=== PATIENT | female | born 1995 | race Caucasian/White ===

== ENCOUNTER 2018-05-03 10:16 | Observation (INO) | payer BC ==
[2018-05-03 11:01] LABS: #Basophils 0.1 thou/uL (0.0-0.2); #Eosinphils 0.1 thou/uL (0.0-0.7); #Lymphocytes 1.6 thou/uL (1.20-3.40); #Monocytes 0.3 thou/uL (0.11-0.59); #Neutrophils 5.6 thou/uL (1.40-6.50); %Basophils 0.7 % (0.0-1.0); %Eosinophils 0.8 % (0.0-10.0); %Lymphocytes 20.8 % (21.0-51.0); %Monocytes 4.2 % (0.0-10.0); %Neutrophils 73.4 % (42.0-75.0); Hemoglobin 12.9 g/dL (12.0-16.0); Mean Corpuscular HGB CONC 33.7 g/dL (32.0-36.0); Mean Corpuscular Hemoglobin 29.5 pg (27.0-31.0); Mean Corpuscular Volume 87.6 fL (78.0-98.0); Mean Platelet Volume 7.8 fL (7.4-10.4); Platelet Count 238 thou/uL (130-400); Red Blood Cell (RBC) Count 4.39 mill/uL (4.20-5.40); White Blood Cell (WBC) Count 7.7 thou/uL (4.8-10.8)
[2018-05-03] MEDS ORDERED: Morphine 2 MG/ML SYRINGE ONE (11:06)
[2018-05-03] MEDS ORDERED: Ketorolac Tromethamine 30 MG/ML VIAL ONE (11:06)
[2018-05-03] MEDS ORDERED: Ondansetron PF 4 MG/2 ML Vial ONE ×2 (11:13→11:14)
[2018-05-03 14:20] VITALS: BMI 18.0
--- NOTE | 2018-05-03 14:57 | ULT ---
ULTRASOUND PELVIS TRANSVAGINAL: History: Pelvic pain. Recently diagnosed with a left tubal ectopic. Comparison: None. FINDINGS: Real-time grayscale, color doppler, and spectral analysis of the pelvis performed with transabdominal and transvaginal approach. The uterus measures 7.2 x 3 x 4 cm. Endometrium is 3 mm. Right ovary is 5.7 x 4.7 x 4.2 cm with two s eptated cystic structures, one measuring 4 cm and the other 2.6 cm which have the appearance of hemor rhagic cysts. Adjacent to the left ovary is a complex hyperechoic 1 cm structure with a central sub 5 mm hypoechoic round focus. This may be the patient's known ectopic . IMPRESSION: 1. 1 cm hypoechoic structure adjacent to the left ovary with an indwelling very small 5 mm hypoechoic indwelling focus may be the patient's known ectopic . No evidence for ectopic rupture. 2. Likely large hemorrhage cyst in the right ovary. 3. Trace free fluid. 4. Dilated gonadal veins can be seen with pelvic congestion syndrome. 5. Follow up ultrasound and HCG levels are recommended. POS: OFF
[2018-05-03] MEDS ORDERED: Ibuprofen 600 MG TAB PO PRN (16:18)
[2018-05-03] MEDS ORDERED: Acetaminophen 325 MG TAB PO PRN (16:19)
[2018-05-03] MEDS ORDERED: Sodium Chloride 0.9% 10 ML ONE (19:02)
[2018-05-03] MEDS: Ondansetron PF 4 MG/2 ML Vial IVP PRN (19:09)
[2018-05-04] MEDS ORDERED: HYDROcodone/Acetaminophen 7.5/325 mg Tablet ONE (00:59)
[2018-05-04] MEDS ORDERED: Sodium Chloride 0.9% 10 ML ONE (01:00)
[2018-05-04] MEDS: Ondansetron PF 4 MG/2 ML Vial IVP PRN (01:03)
[2018-05-04 07:55] VITALS: BP 89/52; TEMP 98.2
--- NOTE | 2018-05-04 08:18 | SS ---
DATE OF ADMISSION: 05/03/2018 DATE OF DISCHARGE: 05/04/2018 ADMITTING DIAGNOSES: Known ectopic , status post methotrexate with abdominal pain. PRIMARY OB: Dr. Mason Rios HISTORY OF PRESENT ILLNESS: The patient is a 22-year-old female G1, P0 with a known ectopic pregnanc y diagnosed several days ago at which time the patient was diagnosed 2 days prior to presentation, me dicated with methotrexate. The patient presented to the ER on day of admission with a 1-day onset of abdominal pain. The patient required IV pain medication in the emergency room. Evaluation there de monstrated a stable situation. No free fluid in the pelvis or significantly changed ultrasound findi ngs. The patient was admitted to the hospital for pain control and a repeat ultrasound was performed later that evening. The patient reports that her pain was uncontrolled by over the counter medicati ons. Here in the hospital it was controlled with scheduled add ibuprofen, Tylenol and a couple doses of IV morphine. At time of admission, the patient reported some spotting, reported nausea with the pain medication. Denied fever, headache, chest pain, shortness of breath, diarrhea, constipation, ne w rash, hip problems, knee problems, muscle weakness, urinary urgency or frequency. PAST MEDICAL HISTORY: Ectopic . PAST SURGICAL HISTORY: Surgery of her right arm. SOCIAL HISTORY: Reports social drinking of 3 beers a week. Denies drug use or tobacco use. ALLERGIES: No known drug allergies. MEDICATIONS: The patient had received 1 dose of Toradol and morphine in the emergency room at the ti me of my initial evaluation. VITAL SIGNS: On initial presentation blood pressure 126/84, pulse of 88, respiratory rate 16, temper ature 98.1, satting 98% on room air. GENERAL: She appeared to be fairly comfortable at the time of my initial evaluation, however, was ly ing in a position as this gave her the most comfort. She is alert and was reviewing her phone for entertainment. LUNGS: Clear to auscultation bilaterally. HEART: Had a regular rate and rhythm. ABDOMEN: Soft. She did have some mild tenderness to palpation in the left lower quadrant. EXTREMITIES: Nontender, nonedematous. LABORATORY DATA: Again, ultrasound did not demonstrate any significant changes from her initial diag nosis of ectopic . Her repeat ultrasound about 12 hours later also demonstrated a stable si tuation. Overnight the patient continued to have good pain control with 1 dose of IV morphine early in the jodie angel and ibuprofen and Tylenol. This morning the patient reports she is feeling much better. She ramirez s an appointment with her primary physician, Dr. Rios for a HCG drawn which we can draw here prior t o discharge. The patient will be discharged to home with plans to follow up with her OB today and co ntinue outpatient management. ASSESSMENT AND PLAN: The patient is a 22-year-old female with a diagnosed ectopic under th e care of Dr. Mason Rios for medical management who was admitted overnight for pain control and is d oing much better. The patient will be discharged home later this morning prior to her appointment.
--- NOTE | 2018-05-04 08:49 | ULT ---
PRELIMINARY REPORT/[facility]/EMERGENTY AFTER-HOURS PROCEDURE Addendum created by Jannette Hernandes MD on 05/04/2018 2:27 AM Central Time ([place] & [place]) THIS REPORT CONTAINS FINDINGS THAT MAY BE CRITICAL TO PATIENT CARE. The findings were verbally commun icated via telephone conference with ED Zaragoza by Dr. Hernandes on 05/04/2018 2:27 AM CDT. The r esults were acknowledged and understood. Initial Report created on 05/04/2018 2:13 AM Central Time ([place] & [place]) US First Trimester, Transabdominal US , Transvaginal US Duplex Arterial/Venous of the Pelvis, Complete CLINICAL HISTORY: Positive test with pain. Prior history included left tubal ectopic in Feb ust of 2017. US at that time also demonstrated suspected right hemorrhagic ovarian cyst per history p rovided TECHNIQUE: Real-time transabdominal and transvaginal obstetrical ultrasound of the maternal pelvis and a first t rimester with image documentation. Transvaginal imaging was used for better evaluation of t he fetus and adnexa. Real-time duplex ultrasound scan of the pelvis integrating B-mode twodimensional vascular structure, Doppler spectral analysis and color flow Doppler imaging. COMPARISON: No prior study available at this time. FINDINGS: Gestation: There are no visible products of an intrauterine gestation. There is no gestational sac, yolk sac, or pole. There are no appreciable heart tones. Maternal anatomy: Uterus: No acute disease. 7.4 x 3.1 x 4.4 cm. Endometrium is normal at 5 mm. No mass or fluid. Ovaries: Right ovary is prominent and demonstrates, loculated, septated, complex cystic mass, largest componen t of which measures 3.6 x 3.7 x 3.7 cm. Smaller adjacent component measures 2.3 x 1.8 cm. Normal vasc ular noted. Left ovary measures 2.4 x 2.0 x 2.3 cm. Normal vascular noted. Adnexal regions: There is left adnexal tubular 3.4 x 1.2 x 1.3 cm collection with nonspecific 6 mm no dular hyperechoic focus. Free fluid: Trace Impression: No products of an intrauterine gestation identified. Differential considerations include -Viable gestation too early to visualize. -Nonviable gestation / miscarriage. -Ectopic gestation. Complex right ovarian cyst, perhaps hemorrhagic cyst however cystic neoplasm / endometrioma not exclu ded given persistence over time given presence of cyst on prior exam (images not available). Indeterminate left adnexal collection with nonspecific nodular focus as described. This could reflect a new ectopic or be related to prior ectopic gestation in February. This cannot be discerned by anna g. Advise serial beta HCG measurements and short interval follow up exam if levels are rising. Thank you for allowing us to participate in the care of your patient. Dictated and Authenticated by: Jannette Hernandes MD 05/04/2018 2:13 AM Central Time ([place] & [place]) FINAL REPORT PELVIC ULTRASOUND TRANSABDOMINAL AND ENDOVAGINAL ULTRASOUND PERFORMED: Date: 05/03/18 FINDINGS: Complex cystic mass in the right ovary as described. Left adnexal tubular mass as described on prelim inary report. I am in agreement with the preliminary report issued by Chuck. POS: [facility]
== END 2018-05-04 10:23 | disposition home or self-care (01) ==
LOC: ERS 10:16 → 3SE 12:05
PROVIDERS: ADMIT Obstetrics & Gynecology; ATTEND Obstetrics & Gynecology
DX: O00.102 Left tubal pregnancy without intrauterine pregnancy (principal)
CPT/HCPCS: 36415; 76856; 84702; 85025; 86900; 86901; 96374; 96375; 96376; G0378; J1885; J2270; J2405